=== PATIENT | male | born 1935 | race Caucasian/White ===

== ENCOUNTER 2017-10-21 19:29 | Inpatient (IN) | payer OTHER ==
[~2017-10-21] VITALS: Ht 167.6 cm; Wt 84.4 kg
[~2017-10-21 19:29] MED LIST: ACETAMINOPHEN325 MG PO; ASPIRIN EC81 M1 PO; CENTRUM SILVER1 EAC4 PO; DILTIAZEM 24HR180 M1 PO; FISH OIL 1,4001 EACH PO; GLUCOSAMINE-CH1 EA33 PO; LEVAQUIN 500 M500 M4 PO; METFORMIN HCL500 MG PO; MUCINEX TA600 MG/TA2 PO; SIMVASTATIN40 MG PO; VENTOLIN HFA 1818 GM INH; VESICARE 5 MG TA5 M1 PO; ZPAK PO
[2017-10-21 19:45] VITALS: BP 139/57
[2017-10-21] MEDS ORDERED: PLAVIX 75 MG TA75 M1 PO (19:53)
[2017-10-21] MEDS ORDERED: DETROL2 M1 PO (19:53)
[2017-10-21 20:06] LABS: HEMATOCRIT 40.8 % (42.0-52.0); HEMOGLOBIN 13.4 gm/dL (14.0-18.0); MCHC 32.9 g/dL (28.0-37.0); MCV 88.2 fL (80.0-100.0); MPV 8.1 fl. (7.2-11.1); NUCLEATED RBCS 0 /100WBC; PLATELET COUNT* 341 thou/uL (150-400); RBC 4.63 mil/uL (4.50-6.00); RDW-CV 13.4 % (10.5-14.5); WBC 16.1 thou/uL (4.0-11.0)
[2017-10-21 20:15] LABS: ANION GAP 12 mmol/L (7-16); BUN 16 mg/dL (7-18); CHLORIDE 102 mmol/L (98-107); CO2 24 mmol/L (21-32); GLUCOSE 145 mg/dL (70-99); POTASSIUM 4.4 mmol/L (3.5-5.1); SODIUM 138 mmol/L (136-145)
[2017-10-21 20:19] LABS: INR 1.1; PROTIME 10.3 Seconds (9.20-11.50)
[2017-10-21 20:26] LABS: ALBUMIN 3.6 g/dL (3.4-5.0); ALKALINE PHOSPHATASE 79 U/L (46-116); LIPASE 152 U/L (73-393); NT-PRO BRAIN NAT PEPTIDE 148 pg/mL (<300); SGOT 18 U/L (15-37); SGPT 30 U/L (30-65); TOTAL BILIRUBIN 0.4 mg/dL (<0.1-1.0); TOTAL PROTEIN 7.3 g/dL (6.4-8.2); TROPONIN-I LEVEL <0.06 ng/mL (<0.06)
[2017-10-21 20:47] LABS: ABSOLUTE LYMPHOCYTES 0.8 thou/uL (0.8-5.3); ABSOLUTE MONOCYTES 1.3 thou/uL (0.0-1.2); METAMYELOCYTES 1 %; PLATELET ESTIMATE ADEQUATE
[2017-10-21 20:48] LABS: CLUMPED PLTS RARE
[2017-10-21 21:51] VITALS: BP 126/53
[2017-10-21 22:15] VITALS: BP 115/54; BP 125/60
[2017-10-22 04:00] VITALS: BP 125/80
[2017-10-22 05:08] LABS: HEMATOCRIT 38.5 % (42.0-52.0); HEMOGLOBIN 12.6 gm/dL (14.0-18.0); MCH 28.9 pg (26.0-34.0); MCHC 32.8 g/dL (28.0-37.0); MCV 88.2 fL (80.0-100.0); MPV 8.6 fl. (7.2-11.1); RBC 4.36 mil/uL (4.50-6.00); RDW-CV 13.4 % (10.5-14.5); WBC 13.4 thou/uL (4.0-11.0)
[2017-10-22 05:33] LABS: ALBUMIN 3.2 g/dL (3.4-5.0); CALCIUM 8.5 mg/dL (8.5-10.1); POTASSIUM 4.4 mmol/L (3.5-5.1); TOTAL BILIRUBIN 0.5 mg/dL (<0.1-1.0); TOTAL PROTEIN 5.9 g/dL (6.4-8.2)
[2017-10-22 08:00] VITALS: BP 137/58
[2017-10-22] MEDS ORDERED: TYLENOL325 MG PO (10:16)
[2017-10-22] MEDS ORDERED: AMARYL2 MG PO (10:17)
[2017-10-22] MEDS ORDERED: TIMOLOL GL0.5 %/5 M1 OPHTHALMIC (10:18)
[2017-10-22] MEDS ORDERED: TYLENOL EXTRA500 MG PO (10:19)
[2017-10-22 11:17] LABS: URINE BILIRUBIN NEGATIVE (Negative); URINE BLOOD NEGATIVE (Negative); URINE CLARITY CLEAR; URINE COLOR YELLOW; URINE GLUCOSE-RANDOM 3+ (Negative); URINE KETONES NEGATIVE (Negative); URINE LEUKOCYTES-REFLEX NEGATIVE (Negative); URINE NITRITE-REFLEX NEGATIVE (Negative); URINE PROTEIN NEGATIVE (Negative); URINE SPECIFIC GRAVITY <= 1.005 (1.005-1.030); URINE UROBILINOGEN 0.2 E.U./dl (0.2-1.0)
[2017-10-22 12:35] VITALS: BP 133/56
[2017-10-22 16:00] VITALS: BP 115/59
[2017-10-22 20:15] VITALS: BP 144/58
[2017-10-22 23:51] VITALS: BP 112/81
[2017-10-23 04:05] LABS: ABSOLUTE LYMPHOCYTES 0.9 thou/uL (0.8-5.3); ABSOLUTE NEUTROPHILS 7.7 thou/uL (1.6-8.1); BASOPHILS 0.2 %; EOSINOPHILS 0.3 %; HEMATOCRIT 36.4 % (42.0-52.0); LYMPHOCYTES 9.4 %; MCH 29.3 pg (26.0-34.0); MCV 88.8 fL (80.0-100.0); MPV 8.1 fl. (7.2-11.1); NUCLEATED RBCS 0 /100WBC; PLATELET COUNT* 307 thou/uL (150-400); POLYS 80.1 %; RDW-CV 13.2 % (10.5-14.5); WBC 9.7 thou/uL (4.0-11.0)
[2017-10-23 04:09] LABS: CALCIUM 8.8 mg/dL (8.5-10.1); POTASSIUM 3.7 mmol/L (3.5-5.1)
[2017-10-23 04:30] VITALS: BP 121/79
[2017-10-23 08:10] VITALS: BP 119/53
[2017-10-23 16:00] VITALS: BP 124/60
[2017-10-23 20:10] VITALS: BP 146/61
[2017-10-24 08:10] VITALS: BP 155/72
--- NOTE | 2017-10-24 11:30 | EKG ---
[place] [address] ELECTROCARDIOGRAM REPORT Name: LAURIE CLAY Room: [address] IN .R.#: [id number] Admission: 10/21/17 Attend Phys: Larry Sandoval MD Discharge: Date of : 37 Report #: [id number] THIS REPORT FOR: //name// [facility] ED Test Date: 2017-10-21 Test Time: 20:08:32 Pat Name: LAURIE CLAY Department: Room: Gender: Jacquard Fixer: ESTEFANY Sheikh : 1935 Requested By: Shirley Maynard Order Number: [id number] MD: Jose R Graff Measurements Intervals [place] Rate: 96 P: 40 MN: 221 QRS: -37 QRSD: 105 T: 85 QT: 356 QTc: 450 Interpretive Statements Sinus rhythm Prolonged MN interval Left axis deviation Borderline low voltage, extremity leads Anteroseptal infarct, old possible Compared to ECG 10/19/2014 20:22:43 First degree AV block now present Myocardial infarct finding now present Electronically Signed On 10-24-2017 11:29:57 CDT by Jose R Graff [email or web address] <ELECTRONICALLY SIGNED> By: Jose R Graff MD, [facility] 10/24/17 1129 07 07 Jose R Graff MD, [facility] /EPI
[2017-10-24 13:18] VITALS: BP 155/72
[2017-10-24] MEDS ORDERED: AUGMENTIN 875-1 EACH PO (13:56)
[2017-10-24 16:46] VITALS: BP 155/72
== END 2017-10-24 16:48 | disposition home or self-care (01) | DRG 177 ==
LOC: M.ERS 19:29 → M.ORTHSURG 20:53 → M.2W 20:53 → M.TBA-ER 20:53 → M.2W 22:22 → M.ORTHSURG 10-22 15:00
PROVIDERS: Emergency Medicine; ADMIT Internal Medicine
DX: J15.6 Pneumonia due to other Gram-negative bacteria (principal); J96.01 Acute respiratory failure with hypoxia; G93.40 Encephalopathy, unspecified; E11.9 Type 2 diabetes mellitus without complications; I48.0 Paroxysmal atrial fibrillation; E78.00 Pure hypercholesterolemia, unspecified; Z79.01 Long term (current) use of anticoagulants; Z86.73 Personal history of transient ischemic attack (TIA), and cerebral infarction without residual deficits; Z79.2 Long term (current) use of antibiotics; Z79.82 Long term (current) use of aspirin; Z79.899 Other long term (current) drug therapy

== ENCOUNTER 2017-10-28 18:58 | Emergency (ER) | payer OTHER ==
[~2017-10-28] VITALS: Ht 167.6 cm; Wt 81.7 kg
[~2017-10-28 18:58] MED LIST changes: +AMARYL2 MG PO; +AUGMENTIN 875-1 EACH PO; +DETROL2 M1 PO; +PLAVIX 75 MG TA75 M1 PO; +TIMOLOL GL0.5 %/5 M1 OPHTHALMIC; +TYLENOL EXTRA500 MG PO; +TYLENOL325 MG PO
[2017-10-28 19:42] LABS: ABSOLUTE EOSINOPHILS 0.2 thou/uL (0.0-0.7); ABSOLUTE NEUTROPHILS 4.7 thou/uL (1.6-8.1); BASOPHILS 0.7 %; EOSINOPHILS 2.4 %; HEMATOCRIT 37.2 % (42.0-52.0); HEMOGLOBIN 12.4 gm/dL (14.0-18.0); LYMPHOCYTES 14.2 %; MCHC 33.2 g/dL (28.0-37.0); MCV 87.3 fL (80.0-100.0); MONOCYTES 14.2 %; MPV 7.9 fl. (7.2-11.1); NUCLEATED RBCS 0 /100WBC; PLATELET COUNT* 385 thou/uL (150-400); POLYS 68.5 %; RBC 4.26 mil/uL (4.50-6.00); RDW-CV 13.6 % (10.5-14.5); WBC 6.9 thou/uL (4.0-11.0)
[2017-10-28 19:53] LABS: URINE BILIRUBIN NEGATIVE (Negative); URINE BLOOD NEGATIVE (Negative); URINE CLARITY CLEAR; URINE COLOR YELLOW; URINE GLUCOSE-RANDOM NEGATIVE (Negative); URINE KETONES TRACE (Negative); URINE LEUKOCYTES-REFLEX NEGATIVE (Negative); URINE NITRITE-REFLEX NEGATIVE (Negative); URINE PROTEIN NEGATIVE (Negative); URINE SPECIFIC GRAVITY 1.015 (1.005-1.030)
[2017-10-28 19:53] LABS: CHLORIDE 101 mmol/L (98-107); SODIUM 137 mmol/L (136-145)
[2017-10-28 20:03] LABS: ANION GAP 7 mmol/L (7-16); BUN 15 mg/dL (7-18); CALCIUM 9.2 mg/dL (8.5-10.1); CO2 29 mmol/L (21-32); GLUCOSE 151 mg/dL (70-99); POTASSIUM 4.3 mmol/L (3.5-5.1)
[2017-10-28 20:08] LABS: ALBUMIN 3.1 g/dL (3.4-5.0); ALKALINE PHOSPHATASE 78 U/L (46-116); SGOT 26 U/L (15-37); SGPT 54 U/L (30-65); TOTAL BILIRUBIN 0.2 mg/dL (<0.1-1.0); TROPONIN-I LEVEL <0.06 ng/mL (<0.06)
[2017-10-28 21:04] VITALS: BP 140/83
--- NOTE | 2017-10-29 12:49 | EKG ---
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1935 Requested By: Shirley Maynard Order Number: [id number] MD: Salbador Kearney Measurements Intervals [place] Rate: 89 P: 44 CO: 223 QRS: -26 QRSD: 100 T: 34 QT: 362 QTc: 441 Interpretive Statements Sinus rhythm Prolonged CO interval Borderline left axis deviation Borderline low voltage, extremity leads Anteroseptal infarct, old Baseline wander in lead(s) V4,V5 Compared to ECG 10/21/2017 20:08:32 No significant changes Electronically Signed On 10-29-2017 12:49:32 CDT by Salbador Kearney [email or web address] <ELECTRONICALLY SIGNED> By: Salbador Kearney MD, FAC 10/29/17 1249 20 20 Salbador Kearney MD, [facility] /EPI
== END 2017-10-28 21:05 | disposition home or self-care (01) ==
LOC: M.ERS 18:58
PROVIDERS: Emergency Medicine
DX: R50.9 Fever, unspecified (principal); R05 Cough; E11.9 Type 2 diabetes mellitus without complications; Z86.73 Personal history of transient ischemic attack (TIA), and cerebral infarction without residual deficits

== ENCOUNTER 2019-07-27 16:01 | Inpatient (IN) | payer OTHER ==
[~2019-07-27] VITALS: Ht 167.6 cm; Wt 83.9 kg
[2019-07-27 16:04] VITALS: BP 188/90
--- NOTE | 2019-07-27 16:09 | NUR ---
PT UNSURE IF ANY CHANGES TO MEDS
[2019-07-27 16:19] LABS: ABSOLUTE BASOPHILS 0.1 thou/uL (0.0-0.2); ABSOLUTE EOSINOPHILS 0.2 thou/uL (0.0-0.7); ABSOLUTE LYMPHOCYTES 1.4 thou/uL (0.8-5.3); ABSOLUTE NEUTROPHILS 3.7 thou/uL (1.6-8.1); BASOPHILS 0.8 %; EOSINOPHILS 2.8 %; HEMATOCRIT 42.8 % (42.0-52.0); HEMOGLOBIN 14.4 gm/dL (14.0-18.0); LYMPHOCYTES 22.7 %; MCH 29.4 pg (26.0-34.0); MCHC 33.7 g/dL (28.0-37.0); MCV 87.3 fL (80.0-100.0); MONOCYTES 15.8 %; MPV 8.1 fl. (7.2-11.1); NUCLEATED RBCS 0 /100WBC; PLATELET COUNT* 355 thou/uL (150-400); POLYS 57.9 %; RDW-CV 13.5 % (10.5-14.5); WBC 6.3 thou/uL (4.0-11.0)
[2019-07-27] MEDS ORDERED: [UNRECOGNIZED DRUG - OTHER] PO (16:26)
[2019-07-27 16:27] LABS: CALCIUM 9.5 mg/dL (8.5-10.1); CREATININE 0.9 mg/dL (0.6-1.3); POTASSIUM 3.9 mmol/L (3.5-5.1)
[2019-07-27 16:28] LABS: APTT 26.2 Seconds (25.0-31.3)
[2019-07-27 16:31] LABS: TOTAL BILIRUBIN 0.3 mg/dL (<0.1-1.0); TOTAL PROTEIN 7.5 g/dL (6.4-8.2)
[2019-07-27 17:04] LABS: URINE BILIRUBIN NEGATIVE (Negative); URINE BLOOD NEGATIVE (Negative); URINE CLARITY CLEAR; URINE COLOR YELLOW; URINE GLUCOSE-RANDOM NEGATIVE (Negative); URINE KETONES NEGATIVE (Negative); URINE LEUKOCYTES-REFLEX NEGATIVE (Negative); URINE NITRITE-REFLEX NEGATIVE (Negative); URINE PROTEIN NEGATIVE (Negative); URINE SPECIFIC GRAVITY 1.015 (1.005-1.030); URINE UROBILINOGEN 0.2 E.U./dl (0.2-1.0)
[2019-07-27 18:41] VITALS: BP 179/74
[2019-07-27 19:03] VITALS: BP 182/80
[2019-07-27 20:00] VITALS: BP 159/74; BP 179/96
[2019-07-28] VITALS: BP 167/65
[2019-07-28 04:00] VITALS: BP 157/76
--- NOTE | 2019-07-28 06:00 | NUR ---
PT A+O X4. CALM AND COOPERATIVE. AMBULATES WITH STEADY GAIT. BARELY NOTICEABLE RIGHT SIDED MOUTH DROOP. SPEECH CLEAR. SWALLOWS WELL. PT RESTED OFF AND ON THROUGH THE NIGHT.
[2019-07-28 06:02] LABS: ALBUMIN 3.6 g/dL (3.4-5.0); ALKALINE PHOSPHATASE 87 U/L (46-116); ANION GAP 10 mmol/L (7-16); BUN 14 mg/dL (7-18); CHLORIDE 103 mmol/L (98-107); CHOLESTEROL 123 mg/dL (<200); CO2 28 mmol/L (21-32); CREATININE 0.9 mg/dL (0.6-1.3); GLUCOSE 161 mg/dL (70-99); HDL CHOLESTEROL 39 mg/dL (>40); LDL CHOLESTEROL 58 mg/dL (<100); SGOT 32 U/L (15-37); SGPT 52 U/L (30-65); SODIUM 141 mmol/L (136-145); TC:HDL 3.2 Ratio (Not establshd); TOTAL BILIRUBIN 0.2 mg/dL (<0.1-1.0); TOTAL PROTEIN 6.8 g/dL (6.4-8.2); TRIGLYCERIDE 132 mg/dL (<150); VLDL 26 mg/dL (<40)
[2019-07-28 06:05] LABS: SERUM ASSESSMENT CLEAR
[2019-07-28 08:00] VITALS: BP 181/61
[2019-07-28 12:28] VITALS: BP 163/78
[2019-07-28 16:48] VITALS: BP 163/78
[2019-07-28] MEDS ORDERED: LIPITOR40 MG PO (16:56)
[2019-07-28] MEDS ORDERED: XARELTO20 MG PO (16:58)
[2019-07-28] MEDS ORDERED: ASA81BEC PO (16:59)
--- NOTE | 2019-07-29 08:25 | 2DMMODE ---
[place] [address] 2 D/M-MODE ECHOCARDIOGRAM Name: LAURIE CLAY ABHINAV Room: [address] IN .R.#: [id number] Admission: 07/27/19 Attend Phys: Pedrito ornelas Sa Discharge: 07/28/19 Date of : 37 Date of Service: 07/29/19 0824 Report #: [id number] THIS REPORT FOR: cc: Samuel Ernst MD, Todd MD Biggs, F. Douglas MD [facility] ~ APPROVED REPORT Study performed: 07/28/2019 17:40:32 EXAM: Comprehensive 2D, Doppler, and color-flow Echocardiogram Patient Location: In-Patient Room #: [facility] Status: routine BSA: 1.93 HR: 81 bpm BP: 163/78 mmHg Rhythm: NSR Other Information Study Quality: Good Indications CVA/TIA Echo Enhancing Agent Indication: Rule out Shunt Agent(s) / Amount(s) Used: Agitated Saline 10 cc 2D Dimensions IVSd: 14.10 (7-11mm) LVOT Diam: 20.58 (18-24mm) LVDd: 44.36 mm PWd: 10.87 (7-11mm) Ascending Ao: 30.10 (22-36mm) LVDs: 24.42 (25-40mm) Aortic Root: 36.11 mm Volumes Left Atrial Volume (Systole) LA ESV Index: 24.20 mL/m2 Aortic Valve AoV Peak Gil.: 2.17 m/s AO Peak Gr.: 18.83 mmHg LVOT Max P.38 mmHg AO Mean Gr.: 11.08 mmHg LVOT Mean P[place]61 [place] [address] 2 D/M-MODE ECHOCARDIOGRAM Name: LAURIE CLAY Room: [address] IN .R.#: [id number] Admission: 07/27/19 Attend Phys: Pedrito ornelas Sa Discharge: 07/28/19 Date of : 37 Date of Service: 07/29/19 0824 Report #: [id number] LVOT Max V: 0.92 m/s AO V2 VTI: 42.71 cm LVOT Mean V: 0.58 m/s REGINA (VTI): 1.44 cm2 LVOT V1 VTI: 18.45 cm Mitral Valve E/A Ratio: 0.73 MV Decel. Time: 206.71 ms MV E Max Gil.: 0.67 m/s MV PHT: 59.94 ms MVA (PHT): 3.67 cm2 TDI E/Lateral E': 6.09 E/Medial E': 7.44 Medial E' Gil.: 0.09 m/s Lateral E' Gil.: 0.11 m/s Pulmonary Valve PV Peak Gil.: 1.09 m/s PV Peak Gr.: 4.76 mmHg Left Ventricle The left ventricle is normal size. There is normal LV segmental wall motion. Borderline concentric left ventricular hypertrophy. Left ventricular systolic function is normal. The left ventricular ejection fraction is within the normal range. LVEF is 60-65%. Grade I - abnormal relaxation pattern. Right Ventricle The right ventricle is normal size. The right ventricular systolic function is normal. Atria The left atrium size is normal. The interatrial septum is intact with no evidence for an atrial septal defect. The right atrium size is normal. Aortic Valve Moderate aortic valve sclerosis. No aortic regurgitation is present. Mild aortic stenosis. Mitral Valve The mitral valve is normal in structure. There is no mitral valve regurgitation noted. No evidence of mitral valve stenosis. Tricuspid Valve The tricuspid valve is normal in structure. Unable to assess PA pressure. Trace [place] [address] 2 D/M-MODE ECHOCARDIOGRAM Name: LAURIE CLAY Room: [address] IN M.R.#: [id number] Admission: 07/27/19 Attend Phys: Pedrito ornelas Sa Discharge: 07/28/19 Date of : 37 Date of Service: 07/29/19 0824 Report #: [id number] Pulmonic Valve The pulmonary valve is normal in structure. There is no pulmonic valvular regurgitation. Great Vessels The aortic root is normal in size. IVC is normal in size and collapses >50% with inspiration. Pericardium There is no pericardial effusion. <Conclusion> LVEF is 60-65%. Grade I - abnormal relaxation pattern. There is normal LV segmental wall motion. The left ventricle is normal size. Borderline concentric left ventricular hypertrophy. Moderate aortic valve sclerosis. No aortic regurgitation is present. Mild aortic stenosis. Unable to assess PA pressure. Trace tricuspid regurgitation. <ELECTRONICALLY SIGNED> By: Cristina Perez MD, FACC 07/29/19823 3 3 Cristina Perez MD, FACC /INF
--- NOTE | 2019-07-30 10:05 | EKG ---
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 : 1935 Requested By: Ritika Triplett Order Number: [id number] MD: Tyrone Lynn Measurements Intervals [place] Rate: 77 P: 0 SD: 235 QRS: -39 QRSD: 105 T: 66 QT: 405 QTc: 459 Interpretive Statements Sinus rhythm Prolonged SD interval Inferior infarct, old Baseline wander in lead(s) V5,V6 Compared to ECG 10/28/2017 19:21:02 No significant changes Electronically Signed On 07-30-2019 10:04:03 CDT by Tyrone Lynn [email or web address] <ELECTRONICALLY SIGNED> By: Tyrone Lynn MD, FACC 07/30/19 1004 1617 1617 Tyrone Lynn MD, FAC /EPI
== END 2019-07-28 18:39 | disposition home or self-care (01) | DRG 65 ==
LOC: M.ERS 16:01 → M.TBA-ER 18:08 → M.2W 19:07
PROVIDERS: Personal Emergency Response Attendant; ADMIT Family Medicine
DX: I63.9 Cerebral infarction, unspecified (principal); D68.59 Other primary thrombophilia; E11.9 Type 2 diabetes mellitus without complications; H91.90 Unspecified hearing loss, unspecified ear; I48.0 Paroxysmal atrial fibrillation; I10 Essential (primary) hypertension; E78.00 Pure hypercholesterolemia, unspecified; E78.5 Hyperlipidemia, unspecified; Z79.01 Long term (current) use of anticoagulants; Z82.49 Family history of ischemic heart disease and other diseases of the circulatory system; Z87.891 Personal history of nicotine dependence; Z79.899 Other long term (current) drug therapy; Z86.73 Personal history of transient ischemic attack (TIA), and cerebral infarction without residual deficits

== ENCOUNTER 2019-10-31 13:25 | Inpatient (IN) | payer OTHER ==
[~2019-10-31] VITALS: Ht 167.6 cm; Wt 78.5 kg
--- NOTE | ~2019-10-31 | PROC ---
[address] [address] PROCEDURE REPORT Name: LAURIE CLAY Room: [address] ADM IN M.R.#: [id number] Admission: 10/31/19 Attend Phys: Larry Sandoval MD Discharge: Date of : 37 Report #: [id number] THIS REPORT FOR: //name// cc: Samuel Ernst MD, Todd MD ~ THIS REPORT FOR: //name// For GI report, please see the Provation report in Perceptive 7 content. By: 0649Medical Records Staff AARON /TATIANA
[~2019-10-31 13:25] MED LIST changes: +ASA81BEC PO; +LIPITOR40 MG PO; +XARELTO20 MG PO; +[UNRECOGNIZED DRUG - OTHER] PO
[2019-10-31 13:38] VITALS: BP 114/55
[2019-10-31 14:24] LABS: ABSOLUTE BASOPHILS 0.1 thou/uL (0.0-0.2); ABSOLUTE EOSINOPHILS 0.2 thou/uL (0.0-0.7); ABSOLUTE LYMPHOCYTES 1.3 thou/uL (0.8-5.3); ABSOLUTE MONOCYTES 0.8 thou/uL (0.0-1.2); ABSOLUTE NEUTROPHILS 3.9 thou/uL (1.6-8.1); EOSINOPHILS 2.7 %; LYMPHOCYTES 20.7 %; MCH 29.6 pg (26.0-34.0); MCHC 32.6 g/dL (28.0-37.0); MCV 90.9 fL (80.0-100.0); MONOCYTES 13.3 %; MPV 7.3 fl. (7.2-11.1); NUCLEATED RBCS 0 /100WBC; PLATELET COUNT* 415 thou/uL (150-400); POLYS 62.3 %; RBC 2.17 mil/uL (4.50-6.00); RDW-CV 16.4 % (10.5-14.5); WBC 6.3 thou/uL (4.0-11.0)
[2019-10-31 14:26] LABS: HEMOGLOBIN 6.4 gm/dL (14.0-18.0)
[2019-10-31 14:27] LABS: HEMATOCRIT 19.8 % (42.0-52.0)
[2019-10-31 14:36] LABS: INR 1.1; PROTIME 11.4 Seconds (9.20-11.50)
[2019-10-31 14:40] LABS: CALCIUM 8.2 mg/dL (8.5-10.1); CREATININE 0.7 mg/dL (0.6-1.3); POTASSIUM 4.5 mmol/L (3.5-5.1)
[2019-10-31 14:55] LABS: ALBUMIN 3.1 g/dL (3.4-5.0); CK-MB MASS 1.9 ng/mL (<0.5-3.6); TOTAL BILIRUBIN 0.2 mg/dL (<0.1-1.0); TOTAL PROTEIN 5.8 g/dL (6.4-8.2)
[2019-10-31 17:07] LABS: URINE BILIRUBIN NEGATIVE (Negative); URINE BLOOD NEGATIVE (Negative); URINE CLARITY CLEAR; URINE COLOR YELLOW; URINE GLUCOSE-RANDOM NEGATIVE (Negative); URINE KETONES NEGATIVE (Negative); URINE LEUKOCYTES-REFLEX NEGATIVE (Negative); URINE NITRITE-REFLEX NEGATIVE (Negative); URINE PROTEIN NEGATIVE (Negative); URINE SPECIFIC GRAVITY <= 1.005 (1.005-1.030); URINE UROBILINOGEN 0.2 E.U./dl (0.2-1.0)
[2019-10-31 22:15] VITALS: BP 114/48
[2019-11-01] VITALS (7 sets, daily range): BP systolic 117–144; BP diastolic 30–72
--- NOTE | 2019-11-01 04:54 | NUR ---
PT ARRIVED TO THE UNIT AT 2230. A&O X 3-4. ON RA. PT REFUSED TO USE URINAL. UP TO THE BATHROOM WITH STANDBY ASSIST. PT DENIED PAIN. NO BM THIS SHIFT. NPO SINCE NIDNIGHT. CALL LIGHT WITHIN REACH. BED ALARM ON. PROCESSING REP IN PLACE. WILL COTINUE TO MONITOR.
[2019-11-01 05:03] LABS: ABSOLUTE EOSINOPHILS 0.1 thou/uL (0.0-0.7); ABSOLUTE MONOCYTES 0.9 thou/uL (0.0-1.2); ABSOLUTE NEUTROPHILS 4.2 thou/uL (1.6-8.1); BASOPHILS 0.7 %; HEMATOCRIT 20.2 % (42.0-52.0); LYMPHOCYTES 16.5 %; MCH 30.5 pg (26.0-34.0); MCHC 33.9 g/dL (28.0-37.0); MONOCYTES 14.6 %; MPV 8.1 fl. (7.2-11.1); NUCLEATED RBCS 0 /100WBC; PLATELET COUNT* 347 thou/uL (150-400); POLYS 66.2 %; RBC 2.24 mil/uL (4.50-6.00); RDW-CV 15.3 % (10.5-14.5); WBC 6.4 thou/uL (4.0-11.0)
[2019-11-01 05:16] LABS: CALCIUM 7.6 mg/dL (8.5-10.1); CREATININE 0.7 mg/dL (0.6-1.3); POTASSIUM 3.7 mmol/L (3.5-5.1)
[2019-11-01 05:45] LABS: HEMOGLOBIN 6.8 gm/dL (14.0-18.0)
--- NOTE | 2019-11-01 08:50 | NUR ---
ASSUMED CARE OF PT AT 0730. PT RESTING IN BED. PT NPO FOR GI CONSULT. SPOKE WITH DR SOLANO-ORDERS RECEIVED FOR EGD THIS AM AROUND [phone]. CONSENT RECEIVED FROM VIA PHONE AND 2 RNS TO WITNESS. PT DENIED ANY DARK STOOLS OVER NIGHT, AT APPROX 0840 PT HAD MODERATE DARK STOOL- DR SOLANO NOTIFIED. PT A&0X3, FORGETFUL. PT VERY [place]. TRACING SR ON THE BICYCLE MECHANIC. ON RA SAT 95%. PT DENIES ANY PAIN OR SHORTNESS OF BREATH AT THIS TIME. PT UP WITH SBA TO BATHROOM-WEAKNESS NOTED. HGB 6.8 THIS AM-ORDERS RECEIVED FOR 1 UNIT PRBC- BLOOD CURRENTLY TRANSFUSING AT THIS TIME. PT GOAL FOR TODAY IS MAINTAIN HGB ABOVE 7, COMPLETE EGD AND NEURO CONSULT IN PLACE. AM ASSESSMENT CHARTED. MEDICATIONS PER JUL. PT REPOSITIONS SELF WITH REMINDERS. HOURLY ROUNDING OBSERVED. BED IN LOW POSITION. BED ALARM IN PLACE. FALL PRECAUTIONS IN PLACE. CALL LIGHT WITHIN REACH. WILL CONTINUE PLAN OF CARE.
--- NOTE | 2019-11-01 09:00 | EKG ---
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 : 1935 Requested By: Juaquin Aguayo Order Number: [id number] MD: Jose D Urbano Measurements Intervals [place] Rate: 81 P: 63 AK: 217 QRS: -20 QRSD: 103 T: 57 QT: 366 QTc: 425 Interpretive Statements Sinus rhythm Borderline prolonged [place] interval Borderline left axis deviation Low voltage, extremity leads Compared to ECG 07/27/2019 16:17:58 Low QRS voltage now present Myocardial infarct finding no longer present Electronically Signed On 11-01-2019 9:00:09 CDT by Jose D Urbano [email or web address] <ELECTRONICALLY SIGNED> By: Jose D Urbano MD, FACC 11/01/19 0900 1427 142 Jose D Urbano MD, FAC /EPI
[2019-11-01 14:32] LABS: HEMATOCRIT 24.5 % (42.0-52.0); HEMOGLOBIN 8.2 gm/dL (14.0-18.0)
--- NOTE | 2019-11-01 16:07 | 2DMMODE ---
[place] [address] 2 D/M-MODE ECHOCARDIOGRAM Name: DANNALAURIE Room: [address] IN M.R.#: [id number] Admission: 10/31/19 Attend Phys: Larry Sandoval, Discharge: Date of : 37 Date of Service: 11/01/19 1606 Report #: [id number] THIS REPORT FOR: cc: Samuel Ernst MD, Todd MD Liston, Michael J. MD [facility] ~ APPROVED REPORT Study performed: 11/01/2019 14:09:25 EXAM: Comprehensive 2D, Doppler, and color-flow Echocardiogram Patient Location: In-Patient BSA: 1.86 HR: 84 bpm BP: 117/72 mmHg Other Information Study Quality: Fair Indications CVA/TIA Echo Enhancing Agent Indication: Rule out Shunt Agent(s) / Amount(s) Used: Agitated Saline cc 2D Dimensions IVSd: 18.27 (7-11mm) LVOT Diam: 19.68 (18-24mm) LVDd: 41.22 mm PWd: 11.92 (7-11mm) Ascending Ao: 33.77 (22-36mm) LVDs: 37.38 (25-40mm) Aortic Root: 26.17 mm Volumes Left Atrial Volume (Systole) LA ESV Index: 20.00 mL/m2 Aortic Valve AoV Peak Gil.: 2.04 m/s AO Peak Gr.: 16.66 mmHg LVOT Max P.22 mmHg AO Mean Gr.: 9.29 mmHg LVOT Mean P.66 mmHg LVOT Max V: 0.90 m/s AO V2 VTI: 38.44 cm LVOT Mean V: 0.59 m/[place] [address] 2 D/M-MODE ECHOCARDIOGRAM Name: LAURIE CLAY Room: [address] IN M.R.#: [id number] Admission: 10/31/19 Attend Phys: Larry Sandoval, Discharge: Date of : 37 Date of Service: 11/01/19 1606 Report #: [id number] REGINA (VTI): 1.25 cm2 LVOT V1 VTI: 15.81 cm Mitral Valve E/A Ratio: 0.89 MV Decel. Time: 227.91 ms MV E Max Gil.: 0.75 m/s MV PHT: 66.09 ms MVA (PHT): 3.33 cm2 TDI E/Lateral E': 6.82 E/Medial E': 10.71 Medial E' Gil.: 0.07 m/s Lateral E' Gil.: 0.11 m/s Pulmonary Valve PV Peak Gil.: 0.94 m/s PV Peak Gr.: 3.50 mmHg Tricuspid Valve RAP Estimate: 5.00 mmHg TR Peak Gr.: 20.90 mmHg RVSP: 25.90 mmHg PA Pressure: 25.90 mmHg Left Ventricle The left ventricle is normal size. There is normal LV segmental wall motion. Mild concentric left ventricular hypertrophy. Left ventricular systolic function is normal. LVEF is 55-60%. Grade I - abnormal relaxation pattern. Right Ventricle The right ventricle is normal size. The right ventricular systolic function is normal. Atria The left atrium size is normal. Injection of bubbles documented no interatrial shunt. The right atrium size is normal. Aortic Valve The Aortic valve is sclerotic. No aortic regurgitation is present. Moderate aortic stenosis. Mitral Valve The mitral valve is normal in structure. There is no mitral valve regurgitation noted. No evidence of mitral valve stenosis. Tricuspid Valve The tricuspid valve [place] [address] 2 D/M-MODE ECHOCARDIOGRAM Name: LAURIE CLAY ABHINAV Room: [address] IN [facility]#: [id number] Admission: 10/31/19 Attend Phys: Larry Sandoval, Discharge: Date of : 37 Date of Service: 11/01/19 1606 Report #: [id number] regurgitation. Pulmonic Valve The pulmonary valve is normal in structure. There is no pulmonic valvular regurgitation. Great Vessels The aortic root is normal in size. IVC is normal in size and collapses >50% with inspiration. Pericardium There is no pericardial effusion. <Conclusion> The left ventricle is normal size. Mild concentric left ventricular hypertrophy. Left ventricular systolic function is normal. LVEF is 55-60%. Grade I - abnormal relaxation pattern. Injection of bubbles documented no interatrial shunt. The Aortic valve is sclerotic. Moderate aortic stenosis. Trace tricuspid regurgitation. <ELECTRONICALLY SIGNED> By: Jose D Urbano MD, FACC 11/01/19 1606 1606 1606 Jose D Urbano MD, FACC /INF
--- NOTE | 2019-11-01 16:19 | NUR ---
NO ACUTE CHANGES THROUGHOUT SHIFT. REFER TO CHARTING. PT HAD EGD TODAY-REFER TO RESULTS. 1 UNIT PRBC TRANSFUSION COMPLETED WHILE IN PACU WITH NO INTERACTIONS OR COMPLICATIONS. HGB POST TRANSFUSION-8.2. PT ON CLEAR LIQUID DIET-TOLERATING WELL. PT DENIES ANY PAIN OR SHORTNESS OF BREATH. CONTINUES TO TRACE SR ON THE HAND ASSEMBLER. AND BEDSIDE THROUGHOUT SHIFT AND UPDATED ON CURRENT PLAN OF CARE. PT PROGRESSING TOWARDS GOALS. MEDICATIONS PER MAR. PT REPOSITIONS SELF WITH REMINDERS. HOURLY ROUNDING OBSERVED. BED IN LOW POSITION. CALL LIGHT WITHIN REACH. WILL CONTINUE PLAN OF CARE.
[2019-11-01 19:05] LABS: HEMATOCRIT 25.5 % (42.0-52.0); HEMOGLOBIN 8.6 gm/dL (14.0-18.0); MCH 30.2 pg (26.0-34.0); MCHC 33.8 g/dL (28.0-37.0); MCV 89.1 fL (80.0-100.0); MPV 7.5 fl. (7.2-11.1); RBC 2.86 mil/uL (4.50-6.00); RDW-CV 15.1 % (10.5-14.5); WBC 13.5 thou/uL (4.0-11.0)
[2019-11-02] VITALS (7 sets, daily range): BP systolic 89–123; BP diastolic 39–72
[2019-11-02 04:34] LABS: ABSOLUTE LYMPHOCYTES 0.9 thou/uL (0.8-5.3); ABSOLUTE MONOCYTES 1.4 thou/uL (0.0-1.2); ABSOLUTE NEUTROPHILS 9.8 thou/uL (1.6-8.1); BASOPHILS 0.3 %; HEMATOCRIT 23.7 % (42.0-52.0); LYMPHOCYTES 7.6 %; MCH 30.1 pg (26.0-34.0); MCHC 33.7 g/dL (28.0-37.0); MCV 89.3 fL (80.0-100.0); MONOCYTES 11.6 %; MPV 7.6 fl. (7.2-11.1); NUCLEATED RBCS 0 /100WBC; PLATELET COUNT* 331 thou/uL (150-400); POLYS 80.5 %; RBC 2.65 mil/uL (4.50-6.00); RDW-CV 15.8 % (10.5-14.5); WBC 12.1 thou/uL (4.0-11.0)
--- NOTE | 2019-11-02 04:59 | NUR ---
Confused most of this shift. He was up in the recliner at start of the shift,he was sleeping. He is very hard of hearing but I did get him to understand that I was going to get him up and have him void and then go back to the bed, He became very wobbly and was holding on to me and then he was incontinent of a large amount of tarry,dark brown or black stool,all over the floor. He did void at that time also and it appeared to be a lot. HOME RESTORATION SERVICE CLEANER did come in and help clean him up and get him back to bed. He did take his meds crushed in applesauce. This am he has a slight temp,crushed tylenol was given. He is supposed to have a repeat EGD today. He has had noyjing by mouth since midnight except for the tylenol. He has slept well.This morning he is more alert and answering questions appropriately.
[2019-11-02 05:01] LABS: CALCIUM 7.6 mg/dL (8.5-10.1); POTASSIUM 3.8 mmol/L (3.5-5.1)
--- NOTE | 2019-11-02 11:20 | NUR ---
ASSUMED CARE OF PT AT 0730. PT LYING IN BED. PT DROWSY, ORIENTED X3, FORGETFUL AT TIMES. VERY [place]. TRACING SR ON THE VACUUM WORKER. ON RA SAT 94%. PT DENIES ANY PAIN OR SHORTNESS OF BREATH AT THIS TIME. PT NPO FOR EGD THIS AM. VERBAL CONSENT RECEIVED FROM /DPOA. PT UP WITH SBA TO BATHROOM. [address]. PT GOAL FOR TODAY IS MAINTAIN HGB ABOVE 8, COMPLETE EGD AND INCREASE ACTIVITY. AM ASSESSMENT CHARTED. MEDICATIONS PER JUL. PT REPOSITIONS SELF WITH REMINDERS. HOURLY ROUNDING OBSERVED. BED IN LOW POSITION. CALL LIGHT WITHIN REACH. BED ALARM IN PLACE. FALL PRECAUTIONS IN PLACE. WILL CONTINUE PLAN OF CARE.
--- NOTE | 2019-11-02 16:25 | NUR ---
Pt receiving breathing treatment when SW attempted to follow up with pt. DC plan pending; SW aware of plan for repeat EGD daily for couple days, day by day. Pt lives at home with . SW/CM to continue to follow to assist with safe dc planning if needs arise.
--- NOTE | 2019-11-02 16:33 | NUR ---
NO ACUTE CHANGES THROUGHOUT SHIFT. REFER TO CHARTING. PT HAD EGD TODAY-REFER TO RESULTS. PT ON FULL LIQUID DIET AND TOLERATING WELL. PT AMBULATED IN HALLWAY WITH NURSING STAFF THIS AFTERNOON-TOLERATED FAIR. WEAKNESS NOTED. [address] UNTIL 309. PT INCONT AT TIMES. AT BEDSIDE THROUGHOUT AFTERNOON. PT DENIES ANY PAIN OR SHORTNESS OF BREATH. PT HAS REMAINED FREE FROM STOOLS TODAY. PT SLOWLY PROGRESSING TOWARDS GOALS. PT CURRENTLY SITTING UP IN THE RECLINER WITH CHAIR ALARM IN PLACE. AT BEDSIDE. MEDICATIONS PER JUL. PT REPOSITIONS SELF WITH REMINDERS. HOURLY ROUNDING OBSERVED. BED IN LOW POSITION. BED ALARM IN PLACE. FALL PRECAUTIONS IN PLACE. CALL LIGHT WITHIN REACH. WILL CONTINUE PLAN OF CARE.
[2019-11-03] VITALS: BP 122/57
[2019-11-03 04:00] VITALS: BP 124/59
[2019-11-03 05:34] LABS: HEMATOCRIT 23.4 % (42.0-52.0); HEMOGLOBIN 7.9 gm/dL (14.0-18.0); MCH 30.5 pg (26.0-34.0); MCHC 33.8 g/dL (28.0-37.0); MCV 90.2 fL (80.0-100.0); MPV 7.8 fl. (7.2-11.1); RBC 2.59 mil/uL (4.50-6.00); RDW-CV 15.6 % (10.5-14.5); WBC 7.3 thou/uL (4.0-11.0)
[2019-11-03 05:45] LABS: CALCIUM 7.7 mg/dL (8.5-10.1); CREATININE 0.8 mg/dL (0.6-1.3); POTASSIUM 3.7 mmol/L (3.5-5.1)
--- NOTE | 2019-11-03 06:38 | NUR ---
PT SLEPT ON AND OFF THIS SHIFT. REPORT RECIEVED FROM EMILI STEVENS, I AGREE WITH HER ASSESSMENT. MEDS GIVEN PER E-MAR. 24 HOUR URINE COMPLETED. PT IS INCONTINENT OF URINE AT TIMES. PT VERY CONFUSED THROUGH SHIFT, ATTEMPTING TO GET OUT OF BED TO DO VARIOUS TASKS SUCH MAKE COFFEE. FALL PRECAUTIONS IN PLACE. WILL CONTINUE WITH PLAN OF CARE.
[2019-11-03 08:00] VITALS: BP 140/46
--- NOTE | 2019-11-03 11:41 | NUR ---
ASSUMED CARE OF PT AT 0730. PT RESTING IN BED. PT DROWSY THIS AM, ORIENTED X2-3, FORGETFUL AT TIMES. IMPULSIVE AT TIMES. LOWER BRULE. PT TEMP 99.9 AX- PRN TYLENOL GIVEN WITH RELIEF- 98.3AX POST TYLENOL. TRACING SR ON THE TRANSPORTATION DESIGN ENGINEER. ON RA SAT UPPER 90'S. PT DENIES ANY PAIN OR SHORTNESS OF BREATH AT THIS TIME. PT INCONT AT TIMES. UP WITH SBA TO BATHROOM. PT ON FULL LIQUID DIET-TOLERATING WELL. PT AT BEDSIDE THIS AM AND UPDATED ON CURRENT PLAN OF CARE. PT GOAL FOR TODAY IS ADVANCE DIET TOLERATED PER GI AND REMAIN FREE FROM TARRY STOOLS. AM ASSESSMENT CHARTED. MEDICATIONS PER JUL. PT REPOSITIONS SELF WITH REMINDERS. HOURLY ROUNDING OBSERVED. BED IN LOW POSITION. CALL LIGHT WITHIN REACH. WILL CONTINUE PLAN OF CARE.
[2019-11-03 12:21] VITALS: BP 116/45
[2019-11-03 16:52] VITALS: BP 120/47
--- NOTE | 2019-11-03 17:27 | NUR ---
PT REMAINS DROWSY THROUGHOUT SHIFT- PT UP TO RECLINER FOR BREAKFAST AND DINNER AND RESTED THROUGHOUT AFTERNOON. REMAINED AT BEDSIDE THROUGHOUT SHIFT. PT CONTINUES TO BE FORGETFUL AND CONFUSED AT TIMES. INCONT AT TIMES. IMPULSIVE. BED ALARM/CHAIR ALARM IN PLACE. PT REMAINED AFEBRILE THIS AFTERNOON AND REMAINED FREE FROM TARRY STOOLS. PT TOLERATING FULL LIQUID DIET WELL. MEDS PER JUL. PT REPOSITIONS SELF WITH REMINDERS. HOURLY ROUNDING OBSERVED. BED IN LOW POSITION. CALL LIGHT WITHIN REACH. WILL CONTINUE PLAN OF CARE.
[2019-11-03 20:00] VITALS: BP 116/44
[2019-11-04] VITALS: BP 131/55
[2019-11-04 03:43] VITALS: BP 109/50
--- NOTE | 2019-11-04 04:54 | NUR ---
ASSUMED CARE OF PT AFTER REPORT AT 1930. PT A&OX2. ONLY ORIENTED TO PERSON & PLACE. CONFUSEDM, FORGETFUL & IMPULSIVE. VSS. PHYSICAL ASSESSMENT COMPLETED AND CHARTED. PT ON RA. PT TRACING SR/ DEG ON TELE. PT UPSTANDBY TO RESTROOM. PT DENIES ANY PAIN. FALL PRECAUTIONS IN PLACE.
[2019-11-04 07:40] VITALS: BP 136/53
--- NOTE | 2019-11-04 08:02 | NUR ---
ASSUMED CARE OF PT AT 0730. PT RESTING IN BED. PT DROWSY, ORIENTED X2-FORGETFUL AND CONFUSED. IMPULSIVE AT TIMES. BED ALARM IN PLACE. PT VERY [place]. PT TRACING SR WITH FIRST DEGREE ON THE LOAN DOCUMENTATION SPECIALIST. ON RA SAT 95%. PT DENIES ANY PAIN OR SHORTNESS OF BREATH AT THIS TIME. PT UP WITH SBA TO BATHROOM. PT GOAL FOR TODAY IS INCREASE ACTIVITY-UP TO CHAIR FOR MEALS AND ADVANCE DIET TOLERATED PER GI. AM ASSESSMENT CHARTED. MEDICATIONS PER JUL. PT REPOSITIONS SELF WITH REMINDERS. HOURLY ROUNDING OBSERVED. BED IN LOW POSITION. CALL LIGHT WITHIN REACH. WILL CONTINUE PLAN OF CARE.
[2019-11-04 12:30] VITALS: BP 112/48
[2019-11-04 12:59] LABS: ABSOLUTE EOSINOPHILS 0.2 thou/uL (0.0-0.7); ABSOLUTE LYMPHOCYTES 0.7 thou/uL (0.8-5.3); ABSOLUTE MONOCYTES 0.7 thou/uL (0.0-1.2); ABSOLUTE NEUTROPHILS 3.7 thou/uL (1.6-8.1); BASOPHILS 0.6 %; EOSINOPHILS 2.9 %; HEMATOCRIT 25.3 % (42.0-52.0); HEMOGLOBIN 8.3 gm/dL (14.0-18.0); LYMPHOCYTES 13.9 %; MCH 29.6 pg (26.0-34.0); MCHC 32.9 g/dL (28.0-37.0); MONOCYTES 13.5 %; MPV 7.9 fl. (7.2-11.1); NUCLEATED RBCS 0 /100WBC; PLATELET COUNT* 340 thou/uL (150-400); POLYS 69.1 %; RBC 2.81 mil/uL (4.50-6.00); RDW-CV 15.2 % (10.5-14.5); WBC 5.4 thou/uL (4.0-11.0)
[2019-11-04 17:14] VITALS: BP 116/42
--- NOTE | 2019-11-04 17:16 | NUR ---
NO ACUTE CHANGES THROUGHOUT SHIFT. REFER TO CHARTING. PT UP TO RECLINER FOR MEALS. TOLERATED WELL. SPOKE WITH GI. ORDERS RECEIVED TO ADVANCE DIET TO CARB CONTROL. PT TOLERATING WELL-REQUIRES SET UP AND ASSIST WITH MEALS. HGB STABLE AT 8.3. PT, OT AND ST ORDERED TODAY PER DR BRAVO. PT DENIES ANY PAIN OR SHORTNESS OF BREATH THROUGHOUT SHIFT. SLOWLY PROGRESSING TOWARDS GOALS. CONTINUES TO BE FORGETFUL AND CONFUSED. MEDICATIONS PER JUL. PT REPOSITIONS SELF WITH REMINDERS. HOURLY ROUNDING OBSERVED. BED IN LOW POSITION. BED/CHAIR ALARM IN PLACE. FALL PRECAUTIONS IN PLACE. CALL LIGHT WITHIN REACH. WILL CONTINUE PLAN OF CARE.
[2019-11-04 20:00] VITALS: BP 119/44
[2019-11-05] VITALS: BP 139/56
[2019-11-05 04:00] VITALS: BP 136/46
--- NOTE | 2019-11-05 04:52 | NUR ---
ASSUMED CARE OF PT AFTER REPORT AT 1930. PT A&OX2. ORIENTED TO PERSON & PLACE. IMPULSIVE. VSS. PHYSICAL ASSESSMENT COMPLETED AND CHARTED. PT ON RA. PT TRACING SR/ DEG ON TELE. PT UPSTANDBY TO RESTROOM. PT DENIES ANY PAIN. FALL PRECAUTIONS IN PLACE. PT ABLE TO SLEEP WELL ON BED.
[2019-11-05 08:00] VITALS: BP 140/63
--- NOTE | 2019-11-05 08:00 | NUR ---
ASSUMED CARE OF PATIENT THIS MORNING FROM NIGHT NURSE. PT IS SLEEPING, AND IS NOT ORINENTATED TO PLACE OR SITUATION. HE WAS EDUCATED ON PLAN OF CARE AND DISEASE PROCESS. HIS BED IS IN THE LOWEST POSITION AND CALL LIGHT IS REACH. BED ALRM IS ON, WILL CONTINUE TO MONITOR.
--- NOTE | 2019-11-05 11:05 | CON ---
[address] [address] CONSULTATION Name: LAURIE CLAY Room: [address] ADM IN M.R.#: [id number] Admission: 10/31/19 Attend Phys: Larry Sandoval MD Discharge: Date of : 37 Report #: [id number] THIS REPORT FOR: //name// cc: Samuel Ernst MD, Todd MD ~ THIS REPORT FOR: //name// CC: Larry Ernst MD DATE OF SERVICE: 11/01/2019 REFERRING PHYSICIAN: Larry Sandoval MD REASON FOR CONSULTATION: Acute anemia with associated melena. IMPRESSION: 1. Acute anemia with associated melena and orthostatic changes -- evaluate for upper gastrointestinal tract loss. 2. Mental status changes with associated orthostasis, likely related to acute gastrointestinal blood loss. 3. History of a transient ischemic attack with recent initiation of Xarelto on top of aspirin. 4. Paroxysmal atrial fibrillation for which the patient on chronic anticoagulation for the same. No history of pancreatitis in the past. RECOMMENDATIONS: 1. Due to the fact the patient has had some melena with associated lightheadedness, dizziness and has had a major drop in his hemoglobin, we will proceed with upper endoscopy today and make further recommendations thereafter. I have discussed the plans with the patient as well as his and the patient is too confused to be able to consent for the same. For this reason, the patient's was consented for the same. We will make further recommendations after we perform the upper endoscopy. DISCUSSION: The patient is a pleasant 84-year-old white male with paroxysmal atrial fibrillation. HISTORY OF PRESENT ILLNESS: Previous TIA/stroke for which he is on chronic anticoagulation in the form of Xarelto and aspirin. The patient had been doing relatively well until his states he started having problem with severe weakness, lightheadedness, dizziness and was falling at home. The patient is not the best of historians, but he denies any major complaints referable to his upper or lower GI tract. He has had some dark [place] [address] CONSULTATION Name: DANNALAURIE JOSHI ABHINAV Room: [address] IN [facility]#: [id number] Admission: 10/31/19 Attend Phys: Larry Sandoval MD Discharge: Date of : 36 Report #: [id number]. He has no prior history of any problems related to his upper or lower GI tract in the past. He does not recall having any endoscopic studies in the past. He is admitted to the hospital with a major drop in his blood hemoglobin with associated melena. He has not been taking any nonsteroidals. ALLERGIES: None. MEDICATIONS: Include diltiazem, fish oil, Centrum Silver, glucosamine and chondroitin, Glucophage, Tylenol, Amaryl, timolol eyedrops, PreserVision, Lipitor, Xarelto, and aspirin. PAST MEDICAL HISTORY: Remarkable for hypertension, hyperlipidemia, diabetes, had a previous TIA and stroke, paroxysmal atrial fibrillation. He has had problems with chronic pancreatitis, but his states he has never had been diagnosed with the same. He has history of prostate cancer surgery in the past. SOCIAL HISTORY: The patient is a former smoker, quit a year ago. Does not drink alcohol. FAMILY HISTORY: Negative for any GI malignancy. PHYSICAL EXAMINATION: GENERAL: Pleasant 84-year-old gentleman who is awake and alert. CARDIOPULMONARY: Revealed a regular rate and rhythm. LUNGS: Clear. ABDOMEN: Soft and not tender. No rebound or guarding noted. LABORATORY DATA: From admission revealed a white count of 6.3, hemoglobin 6.4, platelet count 415,000. MCV was 90.9, RDW 16.4. By comparison when he was here in the hospital in July of this year, his hemoglobin was 14.4. His sodium on admission was 140, potassium 4.5, chloride 107, bicarbonate 26, his BUN was 24, creatinine 0.7. His total bilirubin 0.2, alkaline phosphatase 66, AST 23, ALT 31. Today, his BUN and creatinine are 25 and 0.7 respectively. His INR is 1.1. CT scan of the abdomen and pelvis performed on the revealed a normal appearing liver, gallbladder, possible small hemangioma within the spleen, small hiatal hernia, chronic calcific pancreatitis with numerous calcifications noted throughout the pancreas. There is a 4 cm cyst in the mid pole of the right kidney, diffuse atheromatous calcification of the aorta with no aneurysm, small and large bowel appeared to be unrevealing with the exception of retained fecal material noted throughout the colon. The colon was also redundant. There was [address] [address] CONSULTATION Name: LAURIE CLAY Room: [address] IN M.R.#: [id number] Admission: 10/31/19 Attend Phys: Larry Sandoval MD Discharge: Date of : 36 Report #: [id number] some question that there maybe some mild mucosal thickening involving this rectum, but this may just be related to incomplete distention or spasm. No other abnormalities noted. DISCUSSION: At the present time, the patient has had some issues with major blood loss and anemia with associated lightheadedness and dizziness. We will proceed with upper endoscopy today and make further recommendations thereafter. I have discussed the plans with the patient as well as and they are agreeable to the same. <ELECTRONICALLY SIGNED> By: Melchor Loo DO 11/05/19 1105 1247 [id number] Loo DO /nt
[2019-11-05 12:13] VITALS: BP 124/48
[2019-11-05 12:50] LABS: ABSOLUTE EOSINOPHILS 0.1 thou/uL (0.0-0.7); ABSOLUTE LYMPHOCYTES 0.7 thou/uL (0.8-5.3); ABSOLUTE MONOCYTES 0.7 thou/uL (0.0-1.2); ABSOLUTE NEUTROPHILS 3.3 thou/uL (1.6-8.1); BASOPHILS 0.6 %; EOSINOPHILS 2.5 %; HEMATOCRIT 25.4 % (42.0-52.0); HEMOGLOBIN 8.6 gm/dL (14.0-18.0); LYMPHOCYTES 14.6 %; MCH 30.1 pg (26.0-34.0); MCHC 33.7 g/dL (28.0-37.0); MCV 89.1 fL (80.0-100.0); MONOCYTES 14.5 %; MPV 7.9 fl. (7.2-11.1); NUCLEATED RBCS 0 /100WBC; PLATELET COUNT* 334 thou/uL (150-400); POLYS 67.8 %; RBC 2.85 mil/uL (4.50-6.00); RDW-CV 15.1 % (10.5-14.5); WBC 4.8 thou/uL (4.0-11.0)
--- NOTE | 2019-11-05 13:08 | NUR ---
SW was informed that pt had fever today so wasn't ready to dc home with today and now there's concern pt would not be ready to dc home but that inpt rehab consulted to determine if pt could receive therapies on ARU prior to pt dc home. SW to continue to follow to assist with safe dc planning.
[2019-11-05 17:05] VITALS: BP 126/51
[2019-11-05 20:54] VITALS: BP 111/90
[2019-11-06] VITALS: BP 128/47
[2019-11-06 04:00] VITALS: BP 122/42
--- NOTE | 2019-11-06 04:08 | NUR ---
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 ASSESSMENTS AND HOURLY ROUNDINGS COMPLETE. WILL CONTINUE WITH PLAN OF CARE.
[2019-11-06 05:10] LABS: ABSOLUTE EOSINOPHILS 0.1 thou/uL (0.0-0.7); ABSOLUTE LYMPHOCYTES 0.8 thou/uL (0.8-5.3); ABSOLUTE MONOCYTES 0.7 thou/uL (0.0-1.2); ABSOLUTE NEUTROPHILS 3.5 thou/uL (1.6-8.1); BASOPHILS 0.8 %; EOSINOPHILS 2.6 %; HEMATOCRIT 23.9 % (42.0-52.0); LYMPHOCYTES 14.8 %; MCH 29.6 pg (26.0-34.0); MCHC 33.6 g/dL (28.0-37.0); MCV 88.1 fL (80.0-100.0); MONOCYTES 13.7 %; MPV 7.7 fl. (7.2-11.1); NUCLEATED RBCS 0 /100WBC; PLATELET COUNT* 311 thou/uL (150-400); POLYS 68.1 %; RBC 2.72 mil/uL (4.50-6.00); WBC 5.1 thou/uL (4.0-11.0)
[2019-11-06 08:00] VITALS: BP 136/73
--- NOTE | 2019-11-06 08:00 | NUR ---
ASSUMED CARE OF PATIENT THIS MORNING FROM NIGHT NURSE. PT IS DOING BETTER TODAY. HE IS TALKING AND ANSWERING QUESTIONS. HE HAS NO CO OF PAIN OR NAUSEA AT THIS TIME. HE WAS EDUCATED ON POC, FALL SAFETY AND USING THE CALL LIGHT FOR ASSISTANCE. BED IN LOWEST POSITION AND BED ALARM IS ON. WILL CONTINUE TO MONITOR.
[2019-11-06 11:16] LABS: URINE BLOOD NEGATIVE (Negative); URINE CLARITY CLEAR; URINE COLOR YELLOW; URINE GLUCOSE-RANDOM NEGATIVE (Negative); URINE KETONES NEGATIVE (Negative); URINE LEUKOCYTES-REFLEX NEGATIVE (Negative); URINE NITRITE-REFLEX NEGATIVE (Negative); URINE PROTEIN NEGATIVE (Negative); URINE SPECIFIC GRAVITY >= 1.030 (1.005-1.030); URINE UROBILINOGEN 0.2 E.U./dl (0.2-1.0)
[2019-11-06 11:17] LABS: URINE BILIRUBIN 1+ (Negative)
[2019-11-06 11:18] LABS: ICTOTEST (BILI CONFIRMATORY) Negative (Negative)
[2019-11-06 12:30] LABS: CALCIUM 7.7 mg/dL (8.5-10.1); CREATININE 0.7 mg/dL (0.6-1.3); POTASSIUM 3.3 mmol/L (3.5-5.1)
[2019-11-06 16:30] VITALS: BP 86/60
--- NOTE | 2019-11-06 16:54 | NUR ---
SW left message with Niya in inpt rehab to follow up on referral and noted that OT recommending inpt rehab. SW asked in message to inpt rehab admissions if they began insurance auth. SW to continue to follow to assist with safe dc planning.
[2019-11-06 17:09] LABS: HEMATOCRIT 24.1 % (42.0-52.0)
[2019-11-06 19:40] VITALS: BP 106/42
[2019-11-07] VITALS: BP 144/43
[2019-11-07 04:00] VITALS: BP 132/53
[2019-11-07 05:24] LABS: ABSOLUTE EOSINOPHILS 0.1 thou/uL (0.0-0.7); ABSOLUTE LYMPHOCYTES 0.9 thou/uL (0.8-5.3); ABSOLUTE MONOCYTES 0.8 thou/uL (0.0-1.2); ABSOLUTE NEUTROPHILS 3.7 thou/uL (1.6-8.1); BASOPHILS 0.7 %; EOSINOPHILS 2.1 %; HEMATOCRIT 23.3 % (42.0-52.0); HEMOGLOBIN 7.9 gm/dL (14.0-18.0); LYMPHOCYTES 16.1 %; MCH 29.7 pg (26.0-34.0); MCHC 33.9 g/dL (28.0-37.0); MCV 87.4 fL (80.0-100.0); MONOCYTES 13.9 %; MPV 7.9 fl. (7.2-11.1); NUCLEATED RBCS 0 /100WBC; PLATELET COUNT* 317 thou/uL (150-400); POLYS 67.2 %; RBC 2.66 mil/uL (4.50-6.00); RDW-CV 15.3 % (10.5-14.5); WBC 5.4 thou/uL (4.0-11.0)
--- NOTE | 2019-11-07 05:25 | NUR ---
PATIENT PROGRESSING TOWARDS GOALS: NO BLEEDING NOTED THIS SHIFT. PATIENT DENIES DIZZINESS. UP TO BATHROOM WITH MINIMAL ASSIST. PATIENT DENIES PAIN AND DISCOMFORT. CALL LIGHT WITHIN
[2019-11-07 05:33] LABS: CREATININE 0.8 mg/dL (0.6-1.3); POTASSIUM 3.2 mmol/L (3.5-5.1)
[2019-11-07 08:03] VITALS: BP 125/65
--- NOTE | 2019-11-07 09:15 | NUR ---
SW received message from inpt rehab admissions stating that they believe pt was not medically stable yesterday so when pt is confirmed by doctors that pt is medically stable for rehab, then they would speak with Dr Thomason again and begin insurance auth. SW to continue to follow to assist with finalizing safe dc plan.
[2019-11-07] MEDS ORDERED: LEVAQUIN 500 M500 M2 PO (10:14)
[2019-11-07] MEDS ORDERED: PROTONIX40 M1 PO (10:14)
[2019-11-07] MEDS ORDERED: NAMENDA 5 MG TAB5 M1 PO (10:14)
--- NOTE | 2019-11-07 11:12 | NUR ---
ASSUMED PT CARE AT 0730, PT VERY HARD OF HEARING AND ONLY ORIENTED TO SELF. BROUGHT HEARING AIDS UP AND PT ABLE TO HEAR BETTER BUT STILL CONFUSED AND DISORIENTED. PT GOT UP TO CHAIR TO EAT BREAKFAST AND USE URINAL APPROPRIATELY THIS MORNING. PT NOTED TO HAVE SLIGHTLY ELEVATED TEMP, NOTIFIED, NO NEW ORDERS. PT AND REQUESTING PT TO BE DC'D TODAY, DC PAPERWORK IN, JUST AWAITING CLEARANCE FROM NEPHRO AND GI. BLOOD THINNERS CURRENTLY BEING HELD R/T GI BLEED. POTASSIUM LOW, NOTIFIED AND AWAITING ORDERS FOR E'LYTE PROTOCOL. PT GOAL IS TO WORK ON BEING CLEARED TO DC TO HOME AND TO MAINTAIN SAFETY. AM ASSESSMENT CHARTED, MEDS PER MAR, HOURLY ROUNDING OBSERVED, FALL PRECAUTIONS IN PLACE, CALL LIGHT W/IN REACH, IN ROOM W/ PT, WILL CONTINUE POC.
[2019-11-07 12:30] VITALS: BP 100/61
[2019-11-07 12:35] VITALS: BP 125/65
--- NOTE | 2019-11-07 16:06 | NUR ---
DC ORDERS RECEIVED. DC INSTRUCTIONS, CARE NOTES, SCRIPTS AND F/U APPTS. GIVEN TO PT. PT'S COMMUNICATES UNDERSTANDING OF DC PAPERWORK PT IS CONFUSED AND DISORIENTED. IV AND REHABILITATION SERVICES COUNSELOR REMOVED. PT DC'D BY WC W/ NURSING STAFF AND TO 'S PERSONAL VEHICLE AT APPROX. 1610
[2019-11-09 16:26] LABS: URINE CREATININE 89.5
--- NOTE | 2019-11-15 17:53 | EEG ---
[address] [address] EEG STUDY REPORT Name: LAURIE CLAY Room: [address] IN M.R.#: [id number] Admission: 10/31/19 Attend Phys: Larry Sandoval MD Discharge: 11/07/19 Date of : 36 Report #: [id number] THIS REPORT FOR: //name// CC: [facility] DATE OF SERVICE: 11/05/2019 The patient's EEG was done to evaluate the patient for altered mental status. EEG was done by placing the electrode by standard 10-20 system of electrode placement. Both referential and sequential montages were used for recording. Background activity does look asymmetrical and it does look suppressed on the right side. Background activity is about 7 Hz and 30 microvolts. Photic stimulation is unremarkable. IMPRESSION: This is an abnormal EEG because it is slow on both sides. That is a nonspecific finding which can occur with encephalopathy, dementia, effect of psychotropic medication. However, a right-sided lesion also should be excluded. Thank you very much for this referral. <ELECTRONICALLY SIGNED> By: Justino Burleson MD 11/15/19 1753 09 2018Paradriana Burleson MD /nt
== END 2019-11-07 16:10 | disposition home or self-care (01) | DRG 377 ==
LOC: M.ERS 13:25 → M.TBA-ER 15:29 → M.2W 15:29 → M.ORTHSURG 22:30 → M.2W 22:53
PROVIDERS: Family Medicine; Internal Medicine; Internal Medicine Gastroenterology; ADMIT Internal Medicine; ATTEND Internal Medicine
PROC: 30233N1 Transfusion of Nonautologous Red Blood Cells into Peripheral Vein, Percutaneous Approach (ICD-10-PCS; principal; 2019-10-31)
PROC: 0W3P8ZZ Control Bleeding in Gastrointestinal Tract, Via Natural or Artificial Opening Endoscopic (ICD-10-PCS; 2019-11-01)
PROC: 0DJ08ZZ Inspection of Upper Intestinal Tract, Via Natural or Artificial Opening Endoscopic (ICD-10-PCS; 2019-11-07)
DX: K92.1 Melena (principal); G93.41 Metabolic encephalopathy; J69.0 Pneumonitis due to inhalation of food and vomit; D62 Acute posthemorrhagic anemia; E44.0 Moderate protein-calorie malnutrition; E78.00 Pure hypercholesterolemia, unspecified; E78.5 Hyperlipidemia, unspecified; I48.0 Paroxysmal atrial fibrillation; K31.82 Dieulafoy lesion (hemorrhagic) of stomach and duodenum; K44.9 Diaphragmatic hernia without obstruction or gangrene; E11.9 Type 2 diabetes mellitus without complications; Z68.27 Body mass index [BMI] 27.0-27.9, adult; Z86.73 Personal history of transient ischemic attack (TIA), and cerebral infarction without residual deficits; Z85.46 Personal history of malignant neoplasm of prostate; Z79.01 Long term (current) use of anticoagulants; Z79.82 Long term (current) use of aspirin; Z79.899 Other long term (current) drug therapy; Z87.891 Personal history of nicotine dependence; Z79.84 Long term (current) use of oral hypoglycemic drugs

== ENCOUNTER → 2020-01-02 | Outpatient (CLI) | payer OTHER ==
[~2020-01-02] MED LIST changes: +LEVAQUIN 500 M500 M2 PO; +NAMENDA 5 MG TAB5 M1 PO; +PROTONIX40 M1 PO
== END ==
LOC: M.CT 10:30
PROVIDERS: ATTEND Family Medicine
DX: I65.23 Occlusion and stenosis of bilateral carotid arteries (principal); R41.89 Other symptoms and signs involving cognitive functions and awareness; Z86.73 Personal history of transient ischemic attack (TIA), and cerebral infarction without residual deficits

== ENCOUNTER 2020-01-24 17:59 | Inpatient (IN) | payer OTHER ==
[~2020-01-24] VITALS: Ht 167.6 cm; Wt 78.5 kg
[2020-01-24 18:23] VITALS: BP 167/77
[2020-01-24] MEDS ORDERED: CHLORHEXIDINE FL1 ML PO (18:40)
[2020-01-24] MEDS ORDERED: AMOXICILLIN 50500 M1 PO (18:41)
[2020-01-24 18:57] LABS: HEMATOCRIT 39.8 % (42.0-52.0); HEMOGLOBIN 13.3 gm/dL (14.0-18.0); MCH 28.2 pg (26.0-34.0); MCHC 33.4 g/dL (28.0-37.0); MCV 84.4 fL (80.0-100.0); MPV 7.3 fl. (7.2-11.1); NUCLEATED RBCS 0 /100WBC; PLATELET COUNT* 295 thou/uL (150-400); RBC 4.72 mil/uL (4.50-6.00); RDW-CV 20.8 % (10.5-14.5); WBC 5.6 thou/uL (4.0-11.0)
[2020-01-24 19:06] LABS: CALCIUM 8.9 mg/dL (8.5-10.1)
[2020-01-24 19:10] LABS: ALBUMIN 3.7 g/dL (3.4-5.0); TOTAL BILIRUBIN 0.4 mg/dL (<0.1-1.0); TOTAL PROTEIN 6.8 g/dL (6.4-8.2)
[2020-01-24 19:32] LABS: ABSOLUTE BASOPHILS 0.1 thou/uL (0.0-0.2); ABSOLUTE EOSINOPHILS 0.1 thou/uL (0.0-0.7); ABSOLUTE LYMPHOCYTES 1.1 thou/uL (0.8-5.3); ABSOLUTE MONOCYTES 0.6 thou/uL (0.0-1.2); ABSOLUTE NEUTROPHILS 3.8 thou/uL (1.6-8.1)
[2020-01-24 19:34] LABS: ANISOCYTOSIS 1+; OVALOCYTES Occasional; PLATELET ESTIMATE ADEQUATE
[2020-01-24 19:35] LABS: ROULEAUX FEW
[2020-01-24 21:54] LABS: URINE BILIRUBIN NEGATIVE (Negative); URINE BLOOD NEGATIVE (Negative); URINE CLARITY CLEAR; URINE COLOR YELLOW; URINE GLUCOSE-RANDOM NEGATIVE (Negative); URINE KETONES 1+ (Negative); URINE LEUKOCYTES-REFLEX NEGATIVE (Negative); URINE NITRITE-REFLEX NEGATIVE (Negative); URINE PROTEIN NEGATIVE (Negative); URINE UROBILINOGEN 0.2 E.U./dl (0.2-1.0)
[2020-01-25 03:09] VITALS: BP 149/63
[2020-01-25 07:12] VITALS: BP 163/76
--- NOTE | 2020-01-25 10:36 | EKG ---
[place] [address] ELECTROCARDIOGRAM REPORT Name: LAURIE CLAY Room: [place] [address] ADM IN ..#: [id number] Admission: 01/24/20 Attend Phys: Moy Morales Discharge: Date of : 37 Date of Service: 01/24/20 1847 Report #: [id number] THIS REPORT FOR: //name// [facility] ED Test Date: 2020-01-24 Test Time: 18:47:00 Pat Name: LAURIE CLAY Department: Room: [facility] Gender: M Teletypewriter Operator: : 1935 Requested By: Andre White Order Number: [id number] MD: Jose R Graff Measurements Intervals [place] Rate: 85 P: 61 AZ: 214 QRS: -45 QRSD: 101 T: 60 QT: 380 QTc: 452 Interpretive Statements Sinus rhythm Borderline prolonged AZ interval LAD, consider left anterior fascicular block Compared to ECG 10/31/2019 14:27:37 No significant changes Electronically Signed On 01-25-2020 10:36:15 CDT by Jose R Graff [email or web address] <ELECTRONICALLY SIGNED> By: Jose R Graff MD, [facility] 01/25/20 1036 46 184 Jose R Graff MD, [facility] /EPI
[2020-01-25 11:12] VITALS: BP 180/76
[2020-01-25 12:06] VITALS: BP 180/76
[2020-01-25 12:30] VITALS: BP 164/77
--- NOTE | 2020-01-25 12:37 | 2DMMODE ---
[place] [address] 2 D/M-MODE ECHOCARDIOGRAM Name: DANNALAURIEJOSE LA Room: [address] IN [facility]#: [id number] Admission: 01/24/20 Attend Phys: Moy Morales Discharge: Date of : 37 Date of Service: 01/25/20 1237 Report #: [id number] THIS REPORT FOR: cc: Samuel Ernst MD, Todd MD Holkins,Jose R Howard MD [facility] ~ APPROVED REPORT Study performed: 01/25/2020 10:17:38 EXAM: Comprehensive 2D, Doppler, and color-flow Echocardiogram Patient Location: In-Patient Room #: er Status: routine BSA: 1.91 HR: 96 bpm BP: 163/76 mmHg Rhythm: NSR Other Information Study Quality: Good 2D Dimensions IVSd: 11.73 (7-11mm) LVOT Diam: 19.98 (18-24mm) LVDd: 51.58 mm PWd: 9.42 (7-11mm) Ascending Ao: 30.29 (22-36mm) LVDs: 28.63 (25-40mm) Aortic Root: 34.57 mm Volumes Left Atrial Volume (Systole) LA ESV Index: 20.10 mL/m2 Aortic Valve AoV Peak Gil.: 2.01 m/s AO Peak Gr.: 16.17 mmHg LVOT Max P.24 mmHg AO Mean Gr.: 9.29 mmHg LVOT Mean P.08 mmHg LVOT Max V: 0.75 m/s AO V2 VTI: 34.31 cm LVOT Mean V: 0.48 m/s REGINA (VTI): 1.27 cm2 LVOT V1 VTI: 13.93 cm Mitral Valve E/A Ratio: 0.60 MV Decel. Time: 155.74 [place] [address] 2 D/M-MODE ECHOCARDIOGRAM Name: LAURIE CLAY Room: [address] IN .R.#: [id number] Admission: 01/24/20 Attend Phys: Moy Morales Discharge: Date of : 37 Date of Service: 01/25/20 1237 Report #: [id number] E Max Gil.: 0.59 m/s MV PHT: 45.16 ms MVA (PHT): 4.87 cm2 TDI E/Lateral E': 7.38 E/Medial E': 8.43 Medial E' Gil.: 0.07 m/s Lateral E' Gil.: 0.08 m/s Pulmonary Valve PV Peak Gil.: 1.16 m/s PV Peak Gr.: 5.34 mmHg Left Ventricle The left ventricle is normal size. There is normal LV segmental wall motion. There is normal left ventricular wall thickness. Left ventricular systolic function is normal. The left ventricular ejection fraction is within the normal range. LVEF is 60-65%. Grade I - abnormal relaxation pattern. Right Ventricle The right ventricle is normal size. The right ventricular systolic function is normal. Atria Left atrium is mildly dilated. The right atrium size is normal. Aortic Valve Moderate aortic valve sclerosis. No aortic regurgitation is present. Mild aortic stenosis. Mitral Valve The mitral valve is normal in structure. There is no mitral valve regurgitation noted. No evidence of mitral valve stenosis. Tricuspid Valve The tricuspid valve is normal in structure. Unable to assess PA pressure. Trace tricuspid regurgitation. Pulmonic Valve The pulmonary valve is normal in structure. There is no pulmonic valvular regurgitation. Great Vessels The aortic root is normal in size. IVC is normal in size and collapses >50% [place] [address] 2 D/M-MODE ECHOCARDIOGRAM Name: LAURIE CLAY ABHINAV Room: [address] IN [facility].#: [id number] Admission: 01/24/20 Attend Phys: Moy Morales Discharge: Date of : 37 Date of Service: 01/25/20 1237 Report #: [id number] Pericardium There is no pericardial effusion. <Conclusion> The left ventricle is normal size. There is normal left ventricular wall thickness. Left ventricular systolic function is normal. The left ventricular ejection fraction is within the normal range. LVEF is 60-65%. Grade I - abnormal relaxation pattern. The right ventricle is normal size. Left atrium is mildly dilated. The right atrium size is normal. Moderate aortic valve sclerosis. No aortic regurgitation is present. Mild aortic stenosis. The mitral valve is normal in structure. The tricuspid valve is normal in structure. IVC is normal in size and collapses >50% with inspiration. There is no pericardial effusion. There is normal LV segmental wall motion. <ELECTRONICALLY SIGNED> By: Jose R Graff MD, FACC 01/25/20 1237 1237 1237 Jose R Graff MD, FACC /INF
[2020-01-25 19:50] VITALS: BP 170/73
[2020-01-26] VITALS: BP 183/67
[2020-01-26 04:00] VITALS: BP 131/63
[2020-01-26 08:00] VITALS: BP 144/68
[2020-01-26 12:12] VITALS: BP 141/65
[2020-01-26 15:39] LABS: ABSOLUTE BASOPHILS 0.1 thou/uL (0.0-0.2); ABSOLUTE LYMPHOCYTES 0.8 thou/uL (0.8-5.3); ABSOLUTE MONOCYTES 1.5 thou/uL (0.0-1.2); ABSOLUTE NEUTROPHILS 9.2 thou/uL (1.6-8.1); BASOPHILS 0.4 %; EOSINOPHILS 0.2 %; HEMATOCRIT 39.8 % (42.0-52.0); HEMOGLOBIN 13.2 gm/dL (14.0-18.0); LYMPHOCYTES 7.3 %; MCHC 33.3 g/dL (28.0-37.0); MCV 84.1 fL (80.0-100.0); MONOCYTES 13.3 %; NUCLEATED RBCS 0 /100WBC; PLATELET COUNT* 297 thou/uL (150-400); POLYS 78.8 %; RBC 4.73 mil/uL (4.50-6.00); WBC 11.6 thou/uL (4.0-11.0)
[2020-01-26 15:52] LABS: ALBUMIN 3.2 g/dL (3.4-5.0); CALCIUM 8.2 mg/dL (8.5-10.1); CREATININE 1.1 mg/dL (0.6-1.3); POTASSIUM 3.6 mmol/L (3.5-5.1); TOTAL BILIRUBIN 0.4 mg/dL (<0.1-1.0); TOTAL PROTEIN 6.5 g/dL (6.4-8.2)
[2020-01-26 16:50] LABS: PLATELET ESTIMATE ADEQUATE
[2020-01-26 16:51] LABS: ANISOCYTOSIS 1+; OVALOCYTES 1+
[2020-01-26 17:19] VITALS: BP 133/63
[2020-01-26 19:50] VITALS: BP 129/55
[2020-01-27] VITALS: BP 112/47
[2020-01-27 04:00] VITALS: BP 132/57
[2020-01-27 04:51] LABS: ABSOLUTE MONOCYTES 1.1 thou/uL (0.0-1.2); ABSOLUTE NEUTROPHILS 5.4 thou/uL (1.6-8.1); BASOPHILS 0.3 %; EOSINOPHILS 0.5 %; HEMATOCRIT 35.1 % (42.0-52.0); HEMOGLOBIN 11.9 gm/dL (14.0-18.0); LYMPHOCYTES 12.7 %; MCH 28.2 pg (26.0-34.0); MCV 83.1 fL (80.0-100.0); MONOCYTES 14.8 %; MPV 7.6 fl. (7.2-11.1); NUCLEATED RBCS 0 /100WBC; PLATELET COUNT* 249 thou/uL (150-400); POLYS 71.7 %; RBC 4.23 mil/uL (4.50-6.00); RDW-CV 20.3 % (10.5-14.5); WBC 7.6 thou/uL (4.0-11.0)
[2020-01-27 05:13] LABS: ALBUMIN 2.9 g/dL (3.4-5.0); CREATININE 0.8 mg/dL (0.6-1.3); POTASSIUM 3.3 mmol/L (3.5-5.1); TOTAL BILIRUBIN 0.4 mg/dL (<0.1-1.0); TOTAL PROTEIN 5.8 g/dL (6.4-8.2)
[2020-01-27 08:00] LABS: PLATELET ESTIMATE ADEQUATE
[2020-01-27 08:01] LABS: ANISOCYTOSIS 1+; MICROCYTES 2+
[2020-01-27 09:30] VITALS: BP 144/67
[2020-01-27 12:35] VITALS: BP 136/65
[2020-01-27 16:49] VITALS: BP 141/61
[2020-01-27 19:50] VITALS: BP 116/58
[2020-01-28] VITALS: BP 102/57
[2020-01-28 04:00] VITALS: BP 145/76
[2020-01-28 05:03] LABS: ABSOLUTE BASOPHILS 0.1 thou/uL (0.0-0.2); ABSOLUTE EOSINOPHILS 0.1 thou/uL (0.0-0.7); ABSOLUTE LYMPHOCYTES 0.7 thou/uL (0.8-5.3); ABSOLUTE MONOCYTES 0.9 thou/uL (0.0-1.2); ABSOLUTE NEUTROPHILS 3.3 thou/uL (1.6-8.1); BASOPHILS 1.2 %; EOSINOPHILS 1.6 %; HEMATOCRIT 33.7 % (42.0-52.0); HEMOGLOBIN 12.1 gm/dL (14.0-18.0); LYMPHOCYTES 13.4 %; MCH 29.6 pg (26.0-34.0); MCHC 35.8 g/dL (28.0-37.0); MCV 82.6 fL (80.0-100.0); MONOCYTES 18.2 %; MPV 7.9 fl. (7.2-11.1); NUCLEATED RBCS 0 /100WBC; PLATELET COUNT* 206 thou/uL (150-400); POLYS 65.6 %; RBC 4.08 mil/uL (4.50-6.00); RDW-CV 19.2 % (10.5-14.5); WBC 5.1 thou/uL (4.0-11.0)
[2020-01-28 05:10] LABS: ALBUMIN 2.7 g/dL (3.4-5.0); CALCIUM 8.1 mg/dL (8.5-10.1); CREATININE 0.8 mg/dL (0.6-1.3); POTASSIUM 3.8 mmol/L (3.5-5.1); TOTAL BILIRUBIN 0.3 mg/dL (<0.1-1.0); TOTAL PROTEIN 5.6 g/dL (6.4-8.2)
[2020-01-28 07:40] VITALS: BP 157/70
[2020-01-28 16:00] VITALS: BP 174/74
[2020-01-28 17:56] VITALS: BP 161/75
[2020-01-28 20:00] VITALS: BP 150/61
[2020-01-29 04:05] LABS: HEMOGLOBIN 13.1 gm/dL (14.0-18.0); MPV 8.1 fl. (7.2-11.1); NUCLEATED RBCS 0 /100WBC
[2020-01-29 04:11] LABS: ABSOLUTE EOSINOPHILS 0.1 thou/uL (0.0-0.7); ABSOLUTE LYMPHOCYTES 0.9 thou/uL (0.8-5.3); ABSOLUTE MONOCYTES 0.8 thou/uL (0.0-1.2); ABSOLUTE NEUTROPHILS 3.3 thou/uL (1.6-8.1); BASOPHILS 0.9 %; EOSINOPHILS 1.4 %; HEMATOCRIT 38.7 % (42.0-52.0); LYMPHOCYTES 16.9 %; MCH 28.2 pg (26.0-34.0); MONOCYTES 15.1 %; PLATELET COUNT* 258 thou/uL (150-400); POLYS 65.7 %; RBC 4.66 mil/uL (4.50-6.00); RDW-CV 20.4 % (10.5-14.5); WBC 5.1 thou/uL (4.0-11.0)
[2020-01-29 04:12] LABS: CALCIUM 8.5 mg/dL (8.5-10.1); CREATININE 0.9 mg/dL (0.6-1.3); POTASSIUM 3.9 mmol/L (3.5-5.1)
[2020-01-29 06:41] LABS: ANISOCYTOSIS 2+; PLATELET ESTIMATE ADEQUATE
[2020-01-29 08:00] VITALS: BP 179/76
[2020-01-29 16:00] VITALS: BP 156/59
[2020-01-29 20:30] VITALS: BP 165/84
[2020-01-30] VITALS: BP 173/72
[2020-01-30 08:10] VITALS: BP 166/75
[2020-01-30 17:00] VITALS: BP 176/81
[2020-01-30 19:40] VITALS: BP 145/64
[2020-01-31 07:50] VITALS: BP 136/55
[2020-01-31 16:00] VITALS: BP 155/70
--- NOTE | 2020-01-31 18:46 | EEG ---
[address] [address] EEG STUDY REPORT Name: LAURIE CLAY Room: [address] IN M.R.#: [id number] Admission: 01/24/20 Attend Phys: Moy Eller, Discharge: Date of : 36 Report #: [id number] THIS REPORT FOR: //name// CC: Moy Baker Arnieshandra DATE OF SERVICE: 01/29/2020 This patient is being evaluated for altered mental status. EEG was done by placing the electrode by standard 10-20 system of electrode placement. Both referential and sequential montages were used for recording. Background activity in this patient's EEG is about 7 Hz and 30 microvolt. This is a poorly formed background activity. Photic stimulation is unremarkable. Throughout the record, no active epileptiform activity was noticed. IMPRESSION: The patient's EEG is pretty significantly abnormal because it is disorganized and poorly formed. That is a nonspecific abnormality, which can occur with encephalopathy, effect of psychotropic medication, dementia, etc. Clinical correlation is recommended. <ELECTRONICALLY SIGNED> By: Justino Burleson MD 01/31/20 1846 180 24Justino Burleson MD /nt
--- NOTE | 2020-01-31 18:46 | CON ---
[address] [address] CONSULTATION Name: LAURIE CLAY Room: [address] IN M.R.#: [id number] Admission: 01/24/20 Attend Phys: Moy Eller, Discharge: Date of : 36 Report #: [id number] THIS REPORT FOR: //name// cc: Samuel Ernst MD, Todd MD ~ THIS REPORT FOR: //name// CC: Moy rEnst DATE OF SERVICE: 01/29/2020 HISTORY OF PRESENT ILLNESS: This is an 84-year-old male patient who was seen by me for evaluation for altered mental status. The patient was discussed with Dr. Sandoval, the hospitalist, who very nicely updated me on the patient's history. The patient does not provide any reliable history. is there, she provides reasonable history in this patient, but the history she provides is that he was better than what he was before. He usually does not remember months and dates. His short-term memory has been poor for a long time. He is on Namenda. He does recognize close relatives. From all indication, it looks like that he had a significant amount of dementia before this happened. He had some dental abscess that was treated and he has become more lethargic and obtunded, and he was that way when I saw him. It does not look like he has improved much. REVIEW OF SYSTEMS: Indicate he has some sore throat, some swallowing difficulties, some generalized weakness as I understand from the . He has a history of hard of hearing, paroxysmal atrial fibrillation, hypercholesterolemia, TIA, urinary frequency, prostatic cancer and he used to be on anticoagulation, but he is not for the time being. If I understand correctly both from the record and from , this patient had a drop in hemoglobin and I suspect his anticoagulation may have been discontinued because of that. Reviewing the record, it appeared he was here in October. At that time, Dr. Carvajal and me saw him for neurological problems. He apparently had pneumonia. He was pretty confused and lethargic that time also. PAST MEDICAL HISTORY: Positive for what looks like a GI bleed. FAMILY HISTORY: Unremarkable. SOCIAL HISTORY: The patient lives with his and it looks like he has significant dementia in the baseline. PHYSICAL EXAMINATION: Indicate he is not that much [place] [address] CONSULTATION Name: DANNALAURIEJOSE LA Room: [address] IN [facility]#: [id number] Admission: 01/24/20 Attend Phys: Moy Eller, Discharge: Date of : 36 Report #: [id number] He did not talk to me. He did not follow any commands. I cannot do a good neuromuscular or cranial nerve examination, although I attempted to do that. He does not appear to have meningeal sign. His reflexes are diminished. His plantars are mute. He has a history of atrial fibrillation. His breathing was maintained. His blood pressure is 179/76, pulse is 85. LABORATORY DATA: His white count is 5.1. He does not have any thyroid mass or carotid bruit. His sodium is also normal. IMPRESSION: This patient has an underlying dementia. He has most likely superimposed encephalopathy. He had same kind of symptoms when I saw him last time in relation to pneumonia. His B12 level was somewhat on the lower side, we will check it again. I will get an MRI done in this patient. I will also get an EEG done. I discussed with the what we are going to do and potential side effects of contrast with the MRI and her options in that regard. She wanted us to proceed with this testing and we will readjust the question of spinal tap in this patient. More than 50 minutes of time was spent taking care of this patient today and majority of that time was spent counseling and coordinating, and including talking to other health day care director and reviewing his prior studies and records. Thank you very much for this referral. <ELECTRONICALLY SIGNED> By: Justino Burleson MD 01/31/20 1846 1446 [id number] Burleson MD /nt
[2020-01-31 20:00] VITALS: BP 132/57
[2020-02-01 07:50] VITALS: BP 164/71
[2020-02-01] MEDS ORDERED: AUGMENTIN 875-1 EACH PO (09:17)
[2020-02-01] MEDS ORDERED: FLAGYL500 M1 PO (09:17)
[2020-02-01 16:00] VITALS: BP 139/63
[2020-02-01 20:00] VITALS: BP 155/76
[2020-02-02 05:35] LABS: ABSOLUTE BASOPHILS 0.1 thou/uL (0.0-0.2); ABSOLUTE EOSINOPHILS 0.1 thou/uL (0.0-0.7); ABSOLUTE LYMPHOCYTES 0.6 thou/uL (0.8-5.3); ABSOLUTE MONOCYTES 0.8 thou/uL (0.0-1.2); ABSOLUTE NEUTROPHILS 2.9 thou/uL (1.6-8.1); BASOPHILS 1.1 %; HEMATOCRIT 37.3 % (42.0-52.0); HEMOGLOBIN 12.6 gm/dL (14.0-18.0); LYMPHOCYTES 14.2 %; MCH 28.1 pg (26.0-34.0); MCHC 33.8 g/dL (28.0-37.0); MCV 83.1 fL (80.0-100.0); MONOCYTES 17.1 %; MPV 7.5 fl. (7.2-11.1); NUCLEATED RBCS 0 /100WBC; PLATELET COUNT* 279 thou/uL (150-400); POLYS 65.6 %; RBC 4.49 mil/uL (4.50-6.00); RDW-CV 19.8 % (10.5-14.5); WBC 4.5 thou/uL (4.0-11.0)
[2020-02-02 05:43] VITALS: BP 155/76
[2020-02-02 05:48] LABS: ALBUMIN 3.1 g/dL (3.4-5.0); CALCIUM 8.3 mg/dL (8.5-10.1); CREATININE 0.8 mg/dL (0.6-1.3); POTASSIUM 3.1 mmol/L (3.5-5.1); TOTAL BILIRUBIN 0.3 mg/dL (<0.1-1.0)
[2020-02-02 07:06] LABS: ANISOCYTOSIS 1+; PLATELET ESTIMATE ADEQUATE
[2020-02-02 08:05] VITALS: BP 168/78
[2020-02-02 09:48] LABS: URINE BILIRUBIN NEGATIVE (Negative); URINE BLOOD NEGATIVE (Negative); URINE CLARITY CLEAR; URINE COLOR YELLOW; URINE GLUCOSE-RANDOM NEGATIVE (Negative); URINE KETONES 1+ (Negative); URINE LEUKOCYTES-REFLEX NEGATIVE (Negative); URINE NITRITE-REFLEX NEGATIVE (Negative); URINE PROTEIN NEGATIVE (Negative); URINE SPECIFIC GRAVITY 1.025 (1.005-1.030); URINE UROBILINOGEN 0.2 E.U./dl (0.2-1.0)
[2020-02-02 16:00] VITALS: BP 161/68
[2020-02-02 20:30] VITALS: BP 167/67
[2020-02-03 08:33] VITALS: BP 168/75
[2020-02-03 09:35] LABS: CALCIUM 8.1 mg/dL (8.5-10.1); CREATININE 0.8 mg/dL (0.6-1.3); MAGNESIUM 2.2 mg/dL (1.8-2.4); POTASSIUM 3.7 mmol/L (3.5-5.1)
[2020-02-03 20:04] VITALS: BP 126/69
[2020-02-04 08:00] VITALS: BP 168/75
--- NOTE | 2020-02-04 15:35 | CON ---
[address] [address] CONSULTATION Name: LAURIE CLAY Room: [address] IN M.R.#: [id number] Admission: 01/24/20 Attend Phys: Moy Eller, Discharge: Date of : 36 Report #: [id number] THIS REPORT FOR: //name// cc: Samuel Ernst MD, Todd MD ~ THIS REPORT FOR: //name// CC: Moy Ernst MD DICTATED BY: Sindy Garcia [facility] DATE OF SERVICE: 02/01/2020 PRIMARY CARE PHYSICIAN: Samuel Ernst MD Please note at the time of this dictation, the patient was seen and physically examined by myself. REASON FOR CONSULTATION: Abnormal CT, sigmoid colitis. HISTORY OF PRESENT ILLNESS: This is an 84-year-old male who presented to the Emergency Room with having increased weakness and a fever of unknown etiology. The patient was here in end of October of this year for an upper GI bleed in which it was noted that he had a medium hiatal hernia. 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 Four clips were placed and at that time, he was on anticoagulant therapy, which has since been stopped and only taking an aspirin a day. states that he did have a colonoscopy, maybe 3-5 years ago at [facility]. She thinks everything was normal. Did not need to have another one done again, we will obtain those records so we can review those before his flexible sigmoidoscopy tomorrow in the a.m. Currently, she states his bowels normally move daily to every other day. He does take MiraLax every other day at home, which helps facilitate that. She has not noticed any bright red blood or any black and he has had no complaints of any abdominal discomfort at this time. They are still unclear as to cause for his fever and elevated white count upon admission; however, they were focusing on his weight loss with ill-fitting dentures in which he had infection in his gums and had been treated with antibiotics; however, because of that they wanted to make sure that there was no other reasoning in reviewing his previous imaging studies. ALLERGIES: No known drug allergies. MEDICATIONS FROM HOME: Include amoxicillin, chlorhexidine, diltiazem, omega 3, Centrum, glucosamine, Glucophage, Tylenol, Amaryl, tim[place] [address] CONSULTATION Name: LAURIE CLAY ABHINAV Room: [address] IN [facility]#: [id number] Admission: 01/24/20 Attend Phys: Moy Eller, Discharge: Date of : 37 Report #: [id number] Lipitor. PAST MEDICAL HISTORY: Diabetes, very hard of hearing, almost deaf, paroxysmal atrial fib, hypercholesterolemia, TIA, history of chronic pancreatitis, history of prostate cancer and a history of possible TIA in the past. PAST SURGICAL HISTORY: Tonsillectomy and adenoidectomy. FAMILY HISTORY: Sister with colon cancer in her 80s. SOCIAL HISTORY: Denies any alcohol, tobacco or illegal drug use at this time. REVIEW OF SYSTEMS: Twelve-point review of systems is essentially negative except what is mentioned in the HPI. PHYSICAL EXAMINATION: VITAL SIGNS: Temperature 38.1, pulse 85, respirations 18, blood pressure 164/71. HEART: Regular rate and rhythm. LUNGS: Clear. ABDOMEN: Soft, positive bowel sounds in all 4 quadrants with no masses or tenderness noted. LABORATORY DATA: Hemoglobin 13.1, white count on admission was 11.5, he is 5.1, platelets 258, GFR is 71. CT done on 01/28/2020 showed chronic pancreatitis with calcifications noted and marked thickening of the sigmoid colon, the widest at 9 mm. IMPRESSION: 1. Abnormal CT, thickening in the sigmoid colon. 2. Constipation. 3. History of chronic pancreatitis. 4. History of gastrointestinal bleed in October of this year. 5. History of prostate cancer. 6. Family history of colon cancer, sister. PLAN: 1. Flexible sigmoidoscopy tomorrow in the a.m. with Dr. Serrato to evaluate abnormality noted on CT. 2. We will obtain records from [facility]. 3. Further recommendations to be made once the procedure has been performed. Thank you for allowing us to participate in this patient's care. Please do not hesitate to call with any questions in regard [place] [address] CONSULTATION Name: LAURIE CLAY Room: [address] IN [facility].#: [id number] Admission: 01/24/20 Attend Phys: Moy Eller, Discharge: Date of : 36 Report #: [id number] Agree with above assessment and plan by Sindy Garcia <ELECTRONICALLY SIGNED> By: Jose Serrato MD 02/04/20 1535 1127 [id number] Serrato MD /nt
[2020-02-04 16:00] VITALS: BP 140/59
[2020-02-04 19:48] VITALS: BP 155/77; BP 157/65
[2020-02-05 08:00] VITALS: BP 166/75
[2020-02-05 08:15] VITALS: BP 166/75
[2020-02-05 09:00] VITALS: BP 155/77
[2020-02-05 13:08] LABS: ANA INTERPRETATION Negative (Negative)
[2020-02-05 14:49] VITALS: BP 155/77
[2020-02-05 15:39] VITALS: BP 155/77
== END 2020-02-05 16:00 | disposition home health service (06) | DRG 177 ==
LOC: M.ERS 17:59 → M.2W 22:52 → M.TBA-ER 22:52 → M.2W 01-25 12:20 → M.3W 01-28 18:12
PROVIDERS: Emergency Medicine; Internal Medicine; Physician Assistant; ADMIT Family Medicine; ATTEND Family Medicine
PROC: 0DJD8ZZ Inspection of Lower Intestinal Tract, Via Natural or Artificial Opening Endoscopic (ICD-10-PCS; principal; 2020-02-02)
DX: J69.0 Pneumonitis due to inhalation of food and vomit (principal); G93.41 Metabolic encephalopathy; R65.11 Systemic inflammatory response syndrome (SIRS) of non-infectious origin with acute organ dysfunction; E44.1 Mild protein-calorie malnutrition; R13.10 Dysphagia, unspecified; K64.9 Unspecified hemorrhoids; F03.90 Unspecified dementia, unspecified severity, without behavioral disturbance, psychotic disturbance, mood disturbance, and anxiety; E78.00 Pure hypercholesterolemia, unspecified; I48.0 Paroxysmal atrial fibrillation; E11.9 Type 2 diabetes mellitus without complications; R53.1 Weakness; Z20.828 Contact with and (suspected) exposure to other viral communicable diseases; Z86.73 Personal history of transient ischemic attack (TIA), and cerebral infarction without residual deficits; Z68.27 Body mass index [BMI] 27.0-27.9, adult; Z85.46 Personal history of malignant neoplasm of prostate; Z79.01 Long term (current) use of anticoagulants; Z79.84 Long term (current) use of oral hypoglycemic drugs; Z79.899 Other long term (current) drug therapy; Z87.891 Personal history of nicotine dependence